=== PATIENT | male | born 1945 | race Caucasian/White ===

== ENCOUNTER 2018-05-07 12:12 | Emergency (ER) | payer OTHER ==
[2015-02-21 06:58] VITALS: Wt 97.5 kg
[2018-05-07 12:17] VITALS: BP 145/86
[2018-05-07] MEDS ORDERED: DIPHTH/TETANUS/ACEL. PERTUSSIS IM ONE (12:25)
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
[2018-05-07] MEDS ORDERED: IOPAMIDOL 76% 100 ML INFUS BTL 100 ML ONE (12:35)
[2018-05-07 12:37] LABS: PLATELET COUNT, AUTOMATED 219 K/uL (150-450)
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
[2018-05-07 12:46] LABS: INR 0.92
[2018-05-07] MEDS ORDERED: ONDANSETRON 4 MG/2 ML VIAL IVP ONE (13:35)
[2018-05-07] MEDS ORDERED: fentaNYL CITR 100 MCG/2 ML AMP IVP ONE (13:35)
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
[2018-05-07] MEDS ORDERED: PHENYLEPHRINE 0.5% 15 ML BTL ONE (14:24)
[2018-05-07] MEDS ORDERED: fentaNYL CITR 100 MCG/2 ML AMP ONE (15:11)
== END 2018-05-07 15:22 | disposition short-term general hospital (02) ==
LOC: ER 12:23
DX: S06.5X0A Traumatic subdural hemorrhage without loss of consciousness, initial encounter (principal); S06.6X9A Traumatic subarachnoid hemorrhage with loss of consciousness of unspecified duration, initial encounter; V29.9XXA Motorcycle rider (driver) (passenger) injured in unspecified traffic accident, initial encounter; M25.521 Pain in right elbow; S00.81XA Abrasion of other part of head, initial encounter; S50.812A Abrasion of left forearm, initial encounter; S50.811A Abrasion of right forearm, initial encounter; Z87.891 Personal history of nicotine dependence; Z79.899 Other long term (current) drug therapy
CPT/HCPCS: 70450; 71045; 71260; 72125; 72128; 72170; 73080; 74177; 80320; 81001; 83690; 85025; 85610; 85730; 86850; 86900; 86901; 90471; 90715; 96374; 96375; 96376; 99285; J2405; J3010; Q9967; 82040; 82247; 82310; 82374; 82435; 82565; 82947; 84075; 84132; 84155; 84295; 84450; 84460; 84520

== ENCOUNTER → 2018-05-07 | Outpatient (CLI) | payer OTHER ==
[2015-02-21 06:58] VITALS: BMI 34.2
[~2018-05-07] MED LIST: ATOR-1 PO; AZIT-1 PO; CETI-169 PO; CETI10CA PO; DOXY-181 PO; FLUO-177 PO; GABA-549 PO; GABA-551 PO; IBUP600T22 PO; LEVO750T44 PO; LIDO4SOL3 TP; LOSA100T67 PO; LOSA50TA68 PO; METO-253 PO; OMEP-125 PO; OMEP10CA38 PO; OXYC5CAP21 PO; SERT-173 PO; SIMV-54 PO
== END ==
LOC: AMB 11:53
PROVIDERS: ATTEND Nurse Practitioner
DX: S09.90XA Unspecified injury of head, initial encounter (principal); M54.2 Cervicalgia; V28.4XXA Motorcycle driver injured in noncollision transport accident in traffic accident, initial encounter; Y92.414 Local residential or business street as the place of occurrence of the external cause
CPT/HCPCS: A0425; A0427

== ENCOUNTER → 2018-05-07 | Outpatient (CLI) | payer OTHER ==
[2015-02-21 06:58] VITALS: BMI 34.2
== END ==
LOC: AMB 14:58
PROVIDERS: ATTEND Nurse Practitioner
DX: S00.03XA Contusion of scalp, initial encounter (principal); V29.9XXA Motorcycle rider (driver) (passenger) injured in unspecified traffic accident, initial encounter
CPT/HCPCS: A0425; A0426